=== PATIENT | female | born 1950 | race Caucasian/White ===

== ENCOUNTER 2023-11-16 23:27 | Inpatient (IN) | payer MEDICARE, SELFPAY ==
[2023-11-16 17:35] VITALS: BP 118/77
[2023-11-16 19:00] VITALS: BP 133/76
--- NOTE | 2023-11-16 20:15 | ED.GENMED ---
History of Present Illness
<Yady Neville NP - Last Filed: 11/16/23 20:40>
General
Chief Complaint: DVT/Possible Blood Clot
Source: patient
Exam Limitations: none
Time Seen by Provider: 11/16/23 18:49
Nursing documentation reviewed up to this point in time: agreed with
History of Present Illness
History of Present Illness:
Patient to ED with complaint of swelling to LLE. Woke this AM with swelling. No history of trauma. No prior history of same. Brought self to ED fo reval.
Past History
<Yady Neville NP - Last Filed: 11/16/23 20:40>
Past History
ED Past Medical History: Asthma, GERD, HTN, Hypercholesterolemia, Psychiatric (depression) and Other (Diverticulitis)
ED Past Surgical History: Orthopedic (bilateral ligament repair thumb) and Other (breast biopsy)
Social History
Tobacco: Non-smoker
Alcohol: None
Drug: None
Review of Systems
<Yady Neville NP - Last Filed: 11/16/23 20:40>
Review of Systems
Allergies reviewed?: Yes
All Other Systems: ROS reviewed and negative except as documented in HPI and ROS
Constitutional: Reports no symptoms
EENT: Reports no symptoms
Respiratory: Reports no symptoms
Cardiac: Reports no symptoms
ABD/GI: Reports no symptoms
: Reports no symptoms
Musculoskeletal: Reports joint swelling (sswelling to LLE)
Skin: Reports no symptoms
Neurological: Reports no symptoms
Psychiatric: Reports no symptoms
Phy Exam
<Yady Neville NP - Last Filed: 11/16/23 20:40>
General Physical Exam
General Presentation: well appearing and no apparent distress
General age: appears stated age
General Skin: warm and dry
General Habitus: normal
General Mental: alert
Cardiovascular Exam
Cardiovascular Exam: regular rate/rhythm
Pulmonary Exam
Pulmonary Exam: no respiratory distress and chest non tender
Musculoskeletal Exam
Musculoskeletal Exam: full ROM and neuro vasc intact
Skin Exam
Skin Exam: normal color, warm/dry and no rash
Psychiatric Exam
Psychiatric Exam: normal mood/affect
Course
<Yady Neville NP - Last Filed: 11/16/23 20:40>
Orders/Labs/Results
Orders:
Orders
11/16/23 17:38
Periph Venous Lwr Ext Left US [US Periph Venous LOWER Ext LT] Urgent
Comment:
Reason For Exam: swelling
11/16/23 20:47
Complete Blood Count/With Diff Urgent
Comprehensive Metabolic Panel Urgent
11/16/23 22:[address] Non Medication Order As Directed
Physician Order: PTT 6 hours after initial start of Heparin infusion
11/16/23 22:15
Heparin 27300 Units/250 ml 25,000 units in 250 ml IV PER PROTOCOL
Weight to be used for heparin protocol in kilograms (kg):: 98.3
Protocol:: DVT/PE
PTT Goal Range to be used:: PTT 73 to 111 seconds
Order type:: Initial
INITIAL Infusion Dose (UNITS/KG/hr) & then follow protocol:: 18 units/kg/hr
Infusion Dose in UNITS/hr & then follow protocol (UNITS/hr):: 1,800
INFUSION RATE in mL/hr & then follow protocol (mL/hr):: 18
For DVT/PE algorithm, re-bolus for low PTT?: Yes
PTT less than or equal to 64 seconds:: Re-bolus 80 units/kg (max 10,000units). Increase by 400 units/hr
(+ 4mL/hr)
PTT 64.1 to 72.9 seconds:: Re-bolus 40 units/kg (max 5,000 units). Increase by 200 units/hr
(+ 2mL/hr)
PTT 73 to 111 seconds:: Target Range. No change in rate.
PTT 111.1 to 130.9 seconds:: Decrease rate by 200 units/hr (- 2 mL/hr)
PTT 131 to 199.9 seconds:: HOLD for 1 hr. Then decrease by 300 units/hr (- 3mL/hr)
PTT greater than or equal to 200 seconds:: HOLD for 2 hrs & Notify Provider. Then decrease by 400 units/hr
(- 4mL/hr)
Lab follow-up:: Each change, PTT q6h until 2 consecutive are therapeutic. Then
PTT daily.
11/16/23 22:24
Heparin 7,900 units IV PRN PRN
11/16/23 22:25
PTT Urgent
Comment: Obtain baseline before beginning heparin infusion if not already collected
Heparin 3,900 units IV PRN PRN
11/16/23 22:47
CT Abd/pelvis W Iv Cont Urgent
Comment: CT VENOGRAM
Reason For Exam: LLE DVT--eval for proximal clot
11/16/23 22:48
Vascular Surgery Consult Urgent
Consulting Provider: Vivek Prescott III
Was physician already notified: Yes
Abnormal Lab Results
11/16/23
20:47
RBC 3.70 L 10^6/uL
(4.20-5.40)
Hct 36.9 L %
(37.0-47.0)
MCV 99.7 H fL
(81.0-99.0)
MCH 34.1 H pg
(27.0-31.0)
Abs Immat Gran (auto) 0.1 H 10^3/uL
(0-0.05)
Absolute Neuts (auto) 6.8 H 10^3/uL
(1.4-6.5)
BUN 22 H mg/dl
(7-17)
Creatinine 1.1 H mg/dL
(0.6-1.0)
Calcium 10.6 H mg/dl
(8.4-10.2)
11/16/23 20:47
11/16/23 20:47
Vital Signs
Initial and Last Documented VS:
Initial Vital Signs
Temp Pulse Resp BP Pulse Ox
37.1 C 89 18 118/77 94
11/16/23 17:35 11/16/23 17:35 11/16/23 17:35 11/16/23 17:35 11/16/23 17:35
Last Documented Vital Signs
Temp Pulse Resp BP Pulse Ox
37.1 C 81 20 138/79 99
11/16/23 17:35 11/16/23 21:55 11/16/23 21:55 11/16/23 21:55 11/16/23 19:00
<Jermaine Lion MD - Last Filed: 11/16/23 22:49>
Orders/Labs/Results
Orders:
Orders
11/16/23 17:38
Periph Venous Lwr Ext Left US [US Periph Venous LOWER Ext LT] Urgent
Comment:
Reason For Exam: swelling
11/16/23 20:47
Complete Blood Count/With Diff Urgent
Comprehensive Metabolic Panel Urgent
11/16/23 22:[address] Non Medication Order As Directed
Physician Order: PTT 6 hours after initial start of Heparin infusion
11/16/23 22:15
Heparin 82810 Units/250 ml 25,000 units in 250 ml IV PER PROTOCOL
Weight to be used for heparin protocol in kilograms (kg):: 98.3
Protocol:: DVT/PE
PTT Goal Range to be used:: PTT 73 to 111 seconds
Order type:: Initial
INITIAL Infusion Dose (UNITS/KG/hr) & then follow protocol:: 18 units/kg/hr
Infusion Dose in UNITS/hr & then follow protocol (UNITS/hr):: 1,800
INFUSION RATE in mL/hr & then follow protocol (mL/hr):: 18
For DVT/PE algorithm, re-bolus for low PTT?: Yes
PTT less than or equal to 64 seconds:: Re-bolus 80 units/kg (max 10,000units). Increase by 400 units/hr
(+ 4mL/hr)
PTT 64.1 to 72.9 seconds:: Re-bolus 40 units/kg (max 5,000 units). Increase by 200 units/hr
(+ 2mL/hr)
PTT 73 to 111 seconds:: Target Range. No change in rate.
PTT 111.1 to 130.9 seconds:: Decrease rate by 200 units/hr (- 2 mL/hr)
PTT 131 to 199.9 seconds:: HOLD for 1 hr. Then decrease by 300 units/hr (- 3mL/hr)
PTT greater than or equal to 200 seconds:: HOLD for 2 hrs & Notify Provider. Then decrease by 400 units/hr
(- 4mL/hr)
Lab follow-up:: Each change, PTT q6h until 2 consecutive are therapeutic. Then
PTT daily.
11/16/23 22:24
Heparin 7,900 units IV PRN PRN
11/16/23 22:25
PTT Urgent
Comment: Obtain baseline before beginning heparin infusion if not already collected
Heparin 3,900 units IV PRN PRN
11/16/23 22:47
CT Abd/pelvis W Iv Cont Urgent
Comment: CT VENOGRAM
Reason For Exam: LLE DVT--eval for proximal clot
11/16/23 22:48
Vascular Surgery Consult Urgent
Consulting Provider: Vivek Prescott III
Was physician already notified: Yes
Abnormal Lab Results
11/16/23
20:47
RBC 3.70 L 10^6/uL
(4.20-5.40)
Hct 36.9 L %
(37.0-47.0)
MCV 99.7 H fL
(81.0-99.0)
MCH 34.1 H pg
(27.0-31.0)
Abs Immat Gran (auto) 0.1 H 10^3/uL
(0-0.05)
Absolute Neuts (auto) 6.8 H 10^3/uL
(1.4-6.5)
BUN 22 H mg/dl
(7-17)
Creatinine 1.1 H mg/dL
(0.6-1.0)
Calcium 10.6 H mg/dl
(8.4-10.2)
11/16/23 20:47
11/16/23 20:47
Vital Signs
Initial and Last Documented VS:
Initial Vital Signs
Temp Pulse Resp BP Pulse Ox
37.1 C 89 18 118/77 94
11/16/23 17:35 11/16/23 17:35 11/16/23 17:35 11/16/23 17:35 11/16/23 17:35
Last Documented Vital Signs
Temp Pulse Resp BP Pulse Ox
37.1 C 81 20 138/79 99
11/16/23 17:35 11/16/23 21:55 11/16/23 21:55 11/16/23 21:55 11/16/23 19:00
ED Attending Note
<Yady Neville NP - Last Filed: 11/16/23 20:40>
-
Portions of this chart may have been created with voice recognition software.� Occasional wrong word or��sound alike� substitutions may have occurred due to the inherent limitations of voice recognition software.
<Jermaine Lion MD - Last Filed: 11/16/23 22:49>
ED Attending Note
Patient seen and examined by attending physician: Yes
ED Attending Note:
I have seen and evaluated the patient with a [id number] encounter. I have spoken to the advance practicer provider and involved in the medical history, the physical exam, medical decision making.
Evaluation and management service: agree unless noted differently below.
Results interpretation: agree unless noted differently below.
Focused HPI: 73-year-old female with past medical history as noted presents to the emergency room for evaluation of left leg pain and swelling. Patient reports that she started to notice some slight swelling over the past month but feels it has
been worsening over the past week. She says that today she went for a walk and was having pain in the leg and noted that she was having some paresthesias in the foot and that the swelling seemed to be a bit worse and the coloration was off.
Discussed with PCP who referred to the ER. Denies any chest pain or shortness of breath. She denies any history of DVT/PE. Denies any recent flights or travel.
Physical exam: Awake alert oriented x 3. Vital signs noted all within normal limits. Left lower extremity reddish-purple discoloration, +2 edema compared to right lower extremity. Mild calf tenderness. She has palpable DP and PT pulses left
lower extremity.
Medical Decision Makin-year-old female presents with left lower leg pain and swelling, paresthesias. Vitals and exam as above. Labs were sent off including a CBC and a CMP�CMP shows mild TOM with a creatinine of 1.1. Left lower extremity
ultrasound was positive for extensive DVT. Given extent of clot we will plan to start on IV heparin. Case discussed with vascular regarding possibility of thrombolysis�awaiting review and recommendations.
Vascular surgery agrees with IV heparin and admission, recommended ordering CT venogram, n.p.o. at midnight for lysis in the morning. Case discussed with hospitalist for admission.
Discharge Plan
Departure
Prescriptions:
No Action
metoprolol succinate 50 mg Tablet Extended Release 24 Hr
50 mg PO HS
simvastatin 40 mg Tablet
40 mg PO HS
calcium carbonate [Calcium 500] 500 mg calcium (1,250 mg) Tablet
500 mg PO DAILY
omeprazole 20 mg Capsule,Delayed Release(Dr/Ec)
20 mg PO DAILYPRN PRN (Reason: gerd)
sertraline 50 mg Tablet
150 mg PO HS
B Complex Plus Vitamin C 04-51-44-5-300 mg Capsule
1 cap PO DAILY
cholecalciferol (vitamin D3) [Vitamin D3] 25 mcg (1,000 unit) Tablet
25 mcg PO DAILY
lisinopril 20 mg tablet
20 mg PO HS
albuterol sulfate 90 mcg/actuation HFA aerosol inhaler
2 puff INHALATION R Q4HPRN PRN (Reason: sob/wheezing)
budesonide-formoterol [Symbicort] 80-4.5 mcg/actuation HFA aerosol inhaler
2 puff INHALATION R BID
Referrals:
Ambika Smith PA-C [Family Provider] -
Interventions
Interventions:
*Risk Screen - Suicide Last Done: 11/16/23 18:53
*General Assessment Last Done: 11/16/23 18:53
*Neglect/Abuse Screening Last Done: 11/16/23 18:53
*ED COVID-19 Vaccine History Last Done: 11/16/23 18:53
ED- Cardiac Assessment Last Done: 11/16/23 18:53
ED- Pulmonary Assessment Last Done: 11/16/23 18:53
ED-Peripheral Vascular Assessment Last Done: 11/16/23 18:53
ED-Skin Assessment Last Done: 11/16/23 18:53
Discharge Date and Time
Print Language: YORUBA
[2023-11-16 20:55] LABS: % Basophils 0.4 % (0-2); % Eosinophils 0.8 % (0-6); % Immature Granulocytes 0.5 % (0-0.5); % Lymphocytes 20.9 % (20.5-51.1); % Monocytes 5.4 % (1.7-9.3); Absolute Eosinophils 0.1 10^3/uL (0-0.7); Absolute Immature Granulocytes 0.1 10^3/uL (0-0.05); Absolute Monocytes 0.5 10^3/uL (0.1-0.6); Absolute Neutrophils 6.8 10^3/uL (1.4-6.5); Hematocrit 36.9 % (37.0-47.0); Hemoglobin 12.6 g/dL (12.0-16.0); Mean Corp Hgb Conc. 34.1 g/dL (33.0-37.0); Mean Corpuscular Hgb 34.1 pg (27.0-31.0); Mean Corpuscular Volume 99.7 fL (81.0-99.0); Mean Platelet Volume 9.5 fL (7.4-10.4); Nucleated Red Blood Cells % 0 %; Platelet Count 134 10^3/uL (130-400); Red Cell Dist. Width 12.8 % (11.5-14.5); White Blood Cell Count 9.4 10^3/uL (4.8-10.8)
[2023-11-16 21:21] LABS: ALT (SGPT) 19 U/L (0-35); AST (SGOT) 26 U/L (14-36); Albumin 4.1 g/dl (3.5-5.0); Alkaline Phosphatase 105 U/L (38-126); Blood Urea Nitrogen 22 mg/dl (7-17); Calcium 10.6 mg/dl (8.4-10.2); Carbon Dioxide 22 mmol/L (22-30); Chloride 106 mmol/L (98-107); Glucose 83 mg/dl (70-99); Potassium 4.2 mmol/L (3.5-5.1); Sodium 135 mmol/L (135-145); Total Bilirubin 0.7 mg/dl (0.2-1.3); Total Protein 6.6 g/dl (6.3-8.2); eGFR 53.39
[2023-11-16 21:55] VITALS: BP 138/79
[2023-11-16 22:06] VITALS: BMI 39.7
--- NOTE | 2023-11-16 22:21 | EDRN ---
Pharmacy contacted to verify Heparin gtt
[2023-11-16 22:43] LABS: APTT 24.4 Sec (23.4-35.0)
[2023-11-16] MEDS: HEPARIN 25000 UNITS/250 ML IV (23:02)
--- NOTE | 2023-11-16 23:18 | HPS.HSE ---
Family Physician
-
Family Physician: Ambika Smith
Chief Complaint
-
Pain and Swelling of LLE
History of Present Illness
Pt is a 73 yo F with PMH HTN, asthma, DAMASO on CPAP, and depression p/w LLE pain and swelling x 1 day. Pt describes aching pain while walking her dog yesterday. She states pain was noticeably worse worse today while feeding her animals with associated
swelling and pink discoloration. She admits to neuropathy and numbness in lower extremities (L>R). She contacted her PCP for evaluation who recommended going to the ED for prompt peripheral vascular US to r/o DVT. Pt states she has been less active
recently after losing her job, but still walks her dog a few times a day. She denies chest pain, palpitations, SOB, or dizziness. She denies smoking, hormone replacement, recent travel or recent surgery. She denies hx of malignancy, DVT/PE, and
family hx of clotting disorders.
Medical History
Past Medical History
Past Medical History: Reports Other
Additional Past Medical History:
Essential Hypertension
Hyperlipidemia
Mild Persistent Asthma
Anxiety/Depression
Obstructive Sleep Apnea
Overactive Bladder
GERD
Past Surgical History: Reports Other
Additional Past Surgical History:
Back Surgery
Bilateral Knee Arthroscopy
ACL Repair
Bilateral Thumb Surgery
Social History
Tobacco: Non-smoker
Alcohol: Occasional
Family History
Family History: Not pertinent (Denies family history of blood clots)
Allergies / Home Medications
Allergies reflects when Allergies were last updated in [facility].
Home Medications with original date entered in [facility]
Allergy/Medication List:
Allergies
Allergy/AdvReac Type Severity Reaction Status Date / Time
No Known Allergies Allergy Verified 11/16/23 17:38
Home Medications
calcium carbonate 500 mg PO DAILY 12/03/22
cholecalciferol (vitamin D3) 25 mcg (1,000 unit) tablet (Vitamin D3) 25 mcg PO DAILY 12/03/22
metoprolol succinate 50 mg tablet,extended release 24 hr 50 mg PO HS 12/03/22
omeprazole 20 mg capsule,delayed release 20 mg PO DAILYPRN PRN gerd 12/03/22
sertraline 50 mg tablet 150 mg PO HS 12/03/22
simvastatin 40 mg tablet 40 mg PO HS 12/03/22
vitamin B comp and C no.3 15 mg-10 mg-50 mg-5 mg-300 mg capsule (B Complex Plus Vitamin C) 1 cap PO DAILY 12/03/22
albuterol sulfate 90 mcg/actuation aerosol inhaler 2 puff inhalation R Q4HPRN PRN sob/wheezing 11/16/23
budesonide-formoterol HFA 80 mcg-4.5 mcg/actuation aerosol inhaler (Symbicort) 2 puff inhalation R BID 11/16/23
lisinopril 20 mg tablet 20 mg PO HS 11/16/23
Review of Systems
-
A 12 point ROS was completed and negative except as noted: Yes
Constitutional: Denies Fever or Chills
Respiratory: Denies Cough or Trouble Breathing
Cardiac: Denies Chest Pain or Palpitations
Physical Exam
Vital Signs
Vital Signs
Temp Pulse Resp BP Pulse Ox
98.8 F 81 20 138/79 99
11/16/23 17:35 11/16/23 21:55 11/16/23 21:55 11/16/23 21:55 11/16/23 19:00
Physical Exam
General: Comfortable and Conversant
HEENT: Anicteric and Moist mucous membranes
Respiratory: Clear and Non Labored Respirations
Cardiac: S1/S2 and Regular Rhythm
GI: Soft and Non Tender
Rectal: Deferred by Provider
Musculoskeletal: No Clubbing, No Cyanosis and Edema, Left Lower Extremity
Skin: Warm and Dry
Neuro: Awake, Alert, Oriented and Nonfocal/grossly intact
Psych: Calm
Laboratory Results
-
11/16/23 20:47
11/16/23 20:47
Laboratory Results
APTT 24.4 Sec (23.4-35.0) 11/16/23 22:25
Total Bilirubin 0.7 mg/dl (0.2-1.3) 11/16/23 20:47
AST 26 U/L (14-36) 11/16/23 20:47
ALT 19 U/L (0-35) 11/16/23 20:47
Alkaline Phosphatase 105 U/L (38-126) 11/16/23 20:47
Data Reviewed
-
Lab Data: Labs Reviewed by me
Impression/Plan
-
Extensive Left Lower Extremity DVT
-ED reviewed with Vascular Surgery
-Plan for Venogram today
-NPO after midnight for possible thrombolysis in AM
-Continue heparin drip
Essential Hypertension
-Continue lisinopril and metoprolol
Hyperlipidemia
-Continue simvastatin
Mild Persistent Asthma, no acute exacerbation
-Continue Symbicort
Anxiety/Depression
-Continue sertraline
Obstructive Sleep Apnea
-Continue CPAP
Code Status: Full Code
[2023-11-16 23:38] VITALS: BP 151/76
--- NOTE | 2023-11-16 23:39 | W.PN.UPDATE ---
Update Note
Progress Note Update
This is an addendum to the H&P written by Lorelei Morris on 11/16/2003. Patient seen examined independently with PA.
73-year-old female past medical history of asthma, obstructive sleep apnea, hypertension, GERD, depression, hyperlipidemia presenting with increased left lower extremity leg edema over the past 6 weeks. Venous ultrasound shows extensive left lower
extremity DVT. Unprovoked DVT. Heparin drip, CT venogram, vascular surgery consulted, n.p.o. pastmidnight for potential lysis.
[2023-11-17] VITALS (23 sets, daily range): BP systolic 100–164; BP diastolic 37–93; PULSE 77; BMI 38.2
--- NOTE | 2023-11-17 04:26 | PTCARENOTE ---
Received pt from ED via stretcher into room 6766. Pt ambulated w/ standby assist and c/o some lightheadedness. BP 157/75. Tele monitor applied--NSR. IV heparin gtt currently infusing at 18ml/hr, next ptt due at 05:00. Left leg w/ +3 edema, skin warm
to touch and slightly red. Pt aware of POC, call ryan within reach.
[2023-11-17 05:43] LABS: Hematocrit 35.4 % (37.0-47.0); Hemoglobin 12.1 g/dL (12.0-16.0); Mean Corp Hgb Conc. 34.2 g/dL (33.0-37.0); Mean Corpuscular Hgb 33.7 pg (27.0-31.0); Mean Corpuscular Volume 98.6 fL (81.0-99.0); Mean Platelet Volume 9.7 fL (7.4-10.4); Platelet Count 143 10^3/uL (130-400); Red Blood Cell Count 3.59 10^6/uL (4.20-5.40); Red Cell Dist. Width 12.7 % (11.5-14.5); White Blood Cell Count 9.9 10^3/uL (4.8-10.8)
[2023-11-17 05:56] LABS: APTT 129.4 Sec (23.4-35.0)
[2023-11-17] MEDS: SYMBICORT 80/4.5 MCG INHALER 2 PUFF INH (07:40)
[2023-11-17 07:54] LABS: Blood Urea Nitrogen 22 mg/dl (7-17); Calcium 10.6 mg/dl (8.4-10.2); Carbon Dioxide 21 mmol/L (22-30); Chloride 106 mmol/L (98-107); Estimated Creatinine Clearance 54 ml/min; Glucose 82 mg/dl (70-99); Potassium 4.2 mmol/L (3.5-5.1); Sodium 137 mmol/L (135-145); eGFR 59.86
--- NOTE | 2023-11-17 08:47 | W.PN.HOSP.TC ---
Today's Communication/Plan
-
cont heparin
VascSx
Chest CT
Assessment / Plan
Assessment / Plan
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
May-Thurner syndrome, scheduled for OR by vasc Sx on 11/17/23
A/P:
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
Heparin drip and then DOAC
VAscSx for further mgmt
#Mild hypercalcemia
patient on calcium and vit D supplements - advised to stop and repeat calcium level in 1mo with PCP, advised for age appropriate CA screening. CT abd/pelvis without overt signs of CA
check PTH, vit D 0.[address]
#COPD not in exacerbation
#Anxiety d/o
#Essential HTN
#HLD
cont home meds
#Delayed renal contrast excretion
Urine/Albumin ratio, Urine protein random
outpatient follow up by PCP
Cr WNL
DVT ppx on hep drip
FUll code
I have spent at least 56min reviewing chart, test results, communication with consultants and direct patient care
Anticipated Discharge: > 48 hours
Subjective/Interval History
-
Date of Service: November 17, 2023
Objective Data
-
Labs:
Laboratory Results
11/16/23 11/16/23 11/17/23
20:47 22:25 05:15
WBC 9.4 9.9
Hgb 12.6 12.1
Hct 36.9 L 35.4 L
Plt Count 134 143
APTT 24.4 129.4 H
Sodium 135 137
Potassium 4.2 4.2
Chloride 106 106
Carbon Dioxide 22 21 L
BUN 22 H 22 H
Creatinine 1.1 H 1.0
Glucose 83 82
Calcium 10.6 H 10.6 H
Total Bilirubin 0.7
AST 26
ALT 19
Alkaline Phosphatase 105
11/17/23
12:15
WBC
Hgb
Hct
Plt Count
APTT Pending
Sodium
Potassium
Chloride
Carbon Dioxide
BUN
Creatinine
Glucose
Calcium Pending
Total Bilirubin
AST
ALT
Alkaline Phosphatase
Vital Signs:
Vital Signs
Temp Pulse Resp BP Pulse Ox
98.1 F 85 18 129/64 93
11/17/23 08:09 11/17/23 07:43 11/17/23 08:09 11/17/23 05:09 11/17/23 08:09
Review of Systems
-
History Source: Patient
All other systems: Reviewed and negative
Physical Exam
-
General: No Apparent Distress
HEENT: Normocephalic
Respiratory: Clear to Auscultation
Cardiac: Regular Rhythm
GI: Soft, Nontender and Nondistended
Musculoskeletal: Edema, Left Lower Extrem
Skin: Warm
Neuro: Awake, Alert and Oriented
Psych: Calm
--- NOTE | 2023-11-17 08:50 | PTCARENOTE ---
Received pt from shift engineer RN; NSR on monitor and VSS; Heparin drip infusing see flow sheet for details; Lungs clear positive bowel sounds; pt voiding yellow urine; + 3 left lower leg edema, skin warm and tight; Dr Prescott at bedside; palpable
pulses; see nursing documentation for further details.
[2023-11-17] MEDS: NSS 1000 IV ×2 (10:02→23:46)
--- NOTE | 2023-11-17 11:06 | CM ---
Chart reviewed. Patient is independent of ADLS, lives alone in a duplex, 1st level, 3 JUMA[address], 1st floor, 0 DME. Plan is for the patient to return home. CM to follow
--- NOTE | 2023-11-17 11:18 | CON.VAS ---
Consultation
Consultation Request
Date/Time Consultation Requested: November 17, 2023 / 22:48 PM
Date/Time Consultation Performed: November 17, 2023 / 7:30 AM
Requesting Provider: Dr. Barcenas
Performing Provider: Fernandez Silva MD, PGY-1 TY-Resident / Dr. Prescott
Reason for Consultation: LLE - DVT
Medical History
-
Chief Complaint: LLE - Swelling
History of Present Illness:
73 yo Female with no relevant PMHx/PSHx who presented to the ED yesterday afternoon with complains of unilateral LLE swelling and heaviness associated with a red skin discoloration that began while walking her dog.
Pt stated her LLE swelling and heaviness progressively got worst during the afternoon, which prompted her to contact her PCP, which instructed her to present to the ED at the time.
Pt denies experiencing this type of symptoms before and notice no alleviating or aggravating factors at that time.
ROS was negative for any neurologic changes/deficits, chest pain, SOB or palpitations at that time.
Past Medical History
Past Medical History: Asthma, GERD, HTN, Hypercholesterolemia and Psychiatric
Past Surgical History: Orthopedic
Social History
Tobacco: Non-Smoker
Alcohol: Occasional
Drug: None
Personal: Single
Living: Alone
Employment: Not Employed
Family History
Family History: Reviewed & Not Pertinent (No previous FMHx of Blood Clots or Inhereted Hypercoagulability )
Allergies / Home Medications
Allergy/AdvReac Type Severity Reaction Status Date / Time
No Known Allergies Allergy Verified 11/16/23 17:38
�Medication �Instructions �Recorded �Confirmed �Type
calcium carbonate 500 mg PO DAILY 12/03/22 11/16/23 History
cholecalciferol (vitamin D3) 25 25 mcg PO DAILY 12/03/22 11/16/23 History
mcg (1,000 unit) tablet (Vitamin
D3)
metoprolol succinate 50 mg 50 mg PO HS 12/03/22 11/16/23 History
tablet,extended release 24 hr
omeprazole 20 mg capsule,delayed 20 mg PO DAILYPRN PRN gerd 12/03/22 11/16/23 History
release
sertraline 50 mg tablet 150 mg PO HS 12/03/22 11/16/23 History
simvastatin 40 mg tablet 40 mg PO HS 12/03/22 11/16/23 History
vitamin B comp and C no.3 15 mg-10 1 cap PO DAILY 12/03/22 11/16/23 History
mg-50 mg-5 mg-300 mg capsule (B
Complex Plus Vitamin C)
albuterol sulfate 90 mcg/actuation 2 puff inhalation R Q4HPRN PRN 11/16/23 11/16/23 History
aerosol inhaler sob/wheezing
budesonide-formoterol HFA 80 2 puff inhalation R BID 11/16/23 11/16/23 History
mcg-4.5 mcg/actuation aerosol
inhaler (Symbicort)
lisinopril 20 mg tablet 20 mg PO HS 11/16/23 11/16/23 History
azelastine 137 mcg (0.1 %) nasal 1 spray intranasal BID 11/17/23 11/17/23 History
spray
Review of Systems
-
History Source: Patient
All other systems: Negative unless noted
Constitutional: Reports No Symptoms
EENT: Reports No Symptoms
Respiratory: Reports No Symptoms
Cardiac: Reports No Symptoms
Vascular: Reports Leg Pain / Claudication (LLE Pain / Swelling ), Numbness and Tingling
Abdomen/GI: Reports No Symptoms
: Reports No Symptoms
Musculoskeletal: Reports Muscle Pain, Muscle Stiffness, Edema and Other (LLE Edema / Swelling )
Skin: Reports Rash and Other (LLE Reddness / Petechia )
Neurological: Reports Numbness and Other (LLE Heaviness)
Physical Exam
Vital Signs
Temp Pulse Resp BP Pulse Ox
36.7 C 84 18 124/63 97
11/17/23 08:09 11/17/23 08:03 11/17/23 08:09 11/17/23 08:03 11/17/23 08:49
Lab Results
11/17/23 05:15
11/17/23 05:15
Physical Exam
General: Well Developed, Well Nourished, No Apparent Distress and Comfortable
HEENT: Anicteric
Respiratory: Non Labored Respirations
Cardiac: Peripheral Edema and Calf Tenderness
Breast: N/A
GI: Soft, Non Tender and Non Distended
Musculoskeletal: No Clubbing, No Cyanosis and Edema (Unilateral Left-LE)
Skin: Rash and Other (LLE Redness / Swelling / Petechia )
Neuro: Awake, Alert, Oriented, AO x 3, No Motor Deficits and Nonfocal/Grossly Intact
Hematologic/Lymphatic: No Lymphadenopathy
Psych: Calm
Pulses: Bilateral Femoral: +2, Bilateral Popliteal: +2, Bilateral Dorsalis Pedis: +2 and Bilateral Posterior Tibial: +2
Assessment / Plan
-
ASSESSMENT:
73 yo Female with no relevant PMHx/PSHx who presented to the ED yesterday afternoon with Unilateral LLE Swelling/Tenderness and associated skin changes and was found to have a Spontaneous/Unprovoked LLE DVT.
PLAN:
NPO
Multi-Modal Pain control analgesia
Continue Heparin Drip
Continue Supportive IV Fluids and Supportive Measures
Pt to be schedule to the OR for possible Thrombectomy Vs Thrombolysis of LLE DVT today
Medical/Conservative Vs. Surgical/Interventional Treatment-Therapy Approach along with Risks and Benefits of each one, were discussed, explained and evaluated with the pt this morning.
Data Reviewed
-
CT Scan: Image Personally Visualized and interpreted, Discussed with Physician and Discussed with Patient
Ultrasound: Image Personally Visualized and interpreted, Discussed with Physician and Discussed with Patient
Labs: Labs Reviewed by me, Discussed with Physician and Discussed with Patient
Critical Care Time (in minutes): ~25 Min
Total Time Spent with Patient (in minutes): ~25 Min
[2023-11-17 13:01] LABS: APTT 116.2 Sec (23.4-35.0)
[2023-11-17] MEDS: HEPARIN 25000 UNITS/250 ML IV ×2 (13:17→20:12)
[2023-11-17 13:39] LABS: Vitamin D, 25-OH*** 18.6 ng/mL (30-80)
[2023-11-17 13:48] LABS: Intact PTH 108.8 pg/ml (13.6-85.8)
--- NOTE | 2023-11-17 15:00 | PTCARENOTE ---
Pt sent to Vascular OR with RN; report given.
--- NOTE | 2023-11-17 15:20 | W.SUR.PREOP ---
Pre-Operative Surgical Note
-
I have examined this patient prior to the performance of the scheduled procedure.
The patient's condition is unchanged from the time of the current History and
Physical and the patient is able to undergo the scheduled procedure.
[2023-11-17 16:45] LABS: ACT-LR - POC 142 Seconds (116-155)
[2023-11-17 16:55] LABS: ACT-LR - POC 226 Seconds (116-155)
[2023-11-17] MEDS: ZOFRAN 4 MG IV (18:40)
[2023-11-17] MEDS: SUBLIMAZE 50 MCG IV (19:04)
[2023-11-17 19:13] LABS: APTT > 200 Sec (23.4-35.0)
[2023-11-17] MEDS: SYMBICORT 80/4.5 MCG INHALER INH (19:32)
--- NOTE | 2023-11-17 21:03 | PTCARENOTE ---
Pt is pleasant and AOX3. Tele- SR. L leg elevated and w/ MARY wrap bandage c/d/i. Restarted Heparin gtt per order at 1999. Heparin gtt infusing at 1400 units/hr per order. Pt tolerating regular diet. No complaints nausea. Pt verbalizes understanding
of bedrest restriction for tonight. Currently in bed; call shelby w/in reach.
[2023-11-17] MEDS: ZESTRIL 20 MG PO (21:39)
[2023-11-17] MEDS: LIPITOR 20 MG PO (21:39)
[2023-11-17] MEDS: ZOLOFT 150 MG PO (21:39)
[2023-11-17] MEDS: TOPROL XL 50 MG PO (21:40)
--- NOTE | 2023-11-17 21:42 | OR.RPT ---
Operative Report
Operative Report
Date of Operation: 11/17/2023
Pre Op Diagnosis:
1.) Extensive left lower extremity DVT involving the external iliac vein, common femoral vein, femoral vein and popliteal vein
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
Post Op Diagnosis:
1.) Extensive left lower extremity DVT involving the external iliac vein, common femoral vein, femoral vein and popliteal vein
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
Procedure:
1.) Percutaneous transluminal mechanical thrombectomy using the Inari ClotTriever device
2.) transcatheter placement of intravascular stent, including angioplasty to the left common iliac vein (16 mm x 100 mm Zilver Vena)
3.) transcatheter placement of intravascular stent, including angioplasty to the left external iliac vein (16 mm x 100 mm Zilver Vena)
4.) transluminal balloon angioplasty of the left femoral vein (8 mm x 100 mm)
5.) transluminal balloon angioplasty of the left popliteal vein (8 mm x 100 mm)
6.) intravascular ultrasound for diagnostic evaluation left femoral vein, common femoral vein, external iliac vein, common iliac vein and inferior vena cava
7.) left lower extremity venogram
8.) inferior venacavogram
9.) selective wire and catheter placement, venous system, from left popliteal vein access site (femoral vein, common femoral vein, external iliac vein, common iliac vein, inferior vena cava, superior vena cava, innominate, right subclavian vein)
10.) ultrasound-guided percutaneous access to the left popliteal vein
Surgeon: Vivek Prescott III, MD
Personal Injury Attorney: Cr San MD PhD PGY-6
Anesthesia: General
Complications: None
Estimated Blood Loss: 100 cc
History and Indications for Procedure: 73-year-old female with history of hypertension, obstructive sleep apnea presents with acute onset diffuse left lower extremity swelling and discoloration. She was found to have extensive left lower extremity
DVT on venous duplex involving the common femoral vein, femoral vein and popliteal vein. Cross-sectional imaging demonstrated extension into the left external iliac vein along with venous compression consistent with May-Thurner. She was brought to
the operating room for endovascular intervention.
Procedure in Detail: Lauren Martinez was correctly identified in the operating room. After adequate induction of anesthesia she was carefully positioned prone on the operating table in the vascular surgery hybrid room. All pressure points were closely
inspected and padded appropriately with the assistance of the nursing and anesthesia staff. Her left posterior thigh, popliteal fossa and proximal calf were prepped and draped in the usual sterile fashion. A timeout procedure was performed with
the nursing and anesthesia staff confirming the patient's identity as well as the nature and laterality of the procedure.
Under ultrasound guidance I identified the left popliteal vein. The left popliteal vein was accessed under ultrasound guidance with a micropuncture needle and then I upsized to a 5 [place]orran sheath over a FlexyMind wire. A left lower extremity venogram
was performed demonstrating significant clot burden in the femoral vein with occlusion and significant collateralization identified. The patient was systemically heparinized. Using a long angled tip catheter and a Glidewire I carefully navigated
through the femoral vein, common femoral vein, iliac venous system and into the inferior vena cava. Wire and catheter navigation through the femoral vein was somewhat challenging and suggested there was a more chronic nature to the DVT. An inferior
venacavogram was then performed demonstrating a widely patent vena cava and no evidence of filling defects or stenosis. I then advanced the Glidewire and catheter through the inferior vena cava and into the superior vena cava. The catheter and
wire were then advanced through the innominate vein and into the right subclavian vein. The wire was exchanged out for a 7 cm floppy tip Amplatz wire.
Over the Amplatz wire the 13 Fr ClotTriever sheath was placed. The basket at the end of the sheath was deployed but appeared to be partially constrained due to occlusive thrombus in the femoral vein. Therefore I used an 8 mm by 40 mm angioplasty
balloon to profile the basket open at the distal end of the sheath. Following this the Inari ClotTriever catheter was advanced over the Amplatz wire and the radiopaque marker was positioned in the desired location in the pelvis. We then performed
mechanical thrombectomy of the left common iliac vein, external iliac vein, common femoral vein, femoral vein and popliteal vein. A total of 7 passes were made using the ClotTriever catheter in different orientations. The final 2 passes of the
device returned only a small amount of additional thrombus. On each pass, a mix of acute and chronic thrombus was retrieved. Subsequent venogram demonstrated improvement in the appearance of the femoral vein however there were still areas of what
appeared to be residual chronic thrombus and stenosis diffusely.
Following this I then advanced the intravascular ultrasound catheter over the Amplatz wire. I performed intravascular ultrasound on the femoral vein, common femoral vein, external iliac vein, common iliac vein and inferior vena cava. Consistent
with a venogram areas of residual chronic thrombus and stenosis were identified throughout the femoral vein. The common femoral vein was patent. External iliac vein was patent. I identified a significant area of compression in the left iliac
venous system near the junction of the external iliac vein and common iliac vein corresponding to the area of suspected abnormality on cross-sectional imaging. Using a combination of intravascular ultrasound and fluoroscopic guidance I marked the
confluence of the common iliac veins and origin of the inferior vena cava, left common iliac vein beyond the area of stenosis, the location of the stenosis and the location of the external iliac vein proximal to the area of stenosis. Intravascular
ultrasound was used to measure diameters of the iliac veins proximal and distal to the area of stenosis. At the area of iliac vein stenosis I used an 8 mm x 40 mm angioplasty balloon to pre-dilate. Based on the IVUS diameters that were measured I
proceeded with placement of a 16 mm x 100 mm Zilver Vena stent. The stent was positioned and deployed in the desired location based on the previous IVUS and corresponding fluoroscopic markings. The stent extended from the left common iliac vein
distally to the external iliac vein proximally. The stent was deployed successfully. The stent was then postdilated along its entire length using a 16 mm x 40 mm angioplasty balloon. The stent appeared to be fully profiled with no areas of
residual stenosis identified. Subsequent ilio-cavogram demonstrated an excellent technical result with brisk flow through the left iliac venous system, a widely patent stent in the desired location and no residual stenosis or filling defects. The
vena cava was patent.
I then focused my attention on the residual disease in the left femoral vein. Under roadmap guidance I then used an 8 mm x 100 mm angioplasty balloon to treat the entire length of femoral vein and popliteal vein from the proximal thigh to the
distal end of the ClotTriever sheath. A subsequent venogram demonstrated a significantly improved result. There was brisk flow through the femoral vein with significant improvement in the flow lumen and significantly less visualization of venous
collaterals compared to pretreatment. The iliac venous system was patent along with the stent. Residual nonocclusive thrombus was identified in the common femoral vein.
Satisfied with this result we then concluded the procedure. The wire was removed from the sheath. A [id number] 3-0 Prolene suture was placed around the access site in the skin and subcutaneous tissue. The sheath was removed and the suture
secured. Direct manual pressure was then held over the puncture site for 10 minutes. A sterile dressing was applied. The patient's leg was Jason wrapped from the toes to the proximal thigh.
The patient tolerated the procedure well. She was extubated with no immediate complications and was taken to the recovery room in stable condition.
Attestation: I was present and responsible for the entire procedure
Signed:
Vivek Prescott III, MD
[facility] Vascular Surgery
[phone] (dsdv)
[2023-11-17 23:13] LABS: Urine Protein 5 mg/dl (0-12)
[2023-11-17 23:18] LABS: Microalbumin, Random Urine 0.7 mg/dl (0.6-1.7)
[2023-11-17] MEDS: ROXICODONE 5 MG PO (23:46)
--- NOTE | 2023-11-17 23:52 | PTCARENOTE ---
Pt c/o 610 pain at L leg incision site. Caty RODRIGUEZ and Norma [employer] INSTRUCTIONAL DESIGNER aware and orders placed. PO oxycodone 5mg administered per order. See MAY.
[2023-11-18] VITALS (12 sets, daily range): BP systolic 109–149; BP diastolic 54–76; PULSE 74–86; O2SAT 94
[2023-11-18 03:06] LABS: % Basophils 0.2 % (0-2); % Immature Granulocytes 0.7 % (0-0.5); % Lymphocytes 7.4 % (20.5-51.1); % Monocytes 3.1 % (1.7-9.3); % Neutrophils 88.6 % (42.2-75.2); Absolute Immature Granulocytes 0.1 10^3/uL (0-0.05); Absolute Lymphocytes 0.8 10^3/uL (1.2-3.4); Absolute Monocytes 0.3 10^3/uL (0.1-0.6); Absolute Neutrophils 9.5 10^3/uL (1.4-6.5); Hematocrit 33.2 % (37.0-47.0); Hemoglobin 11.4 g/dL (12.0-16.0); Mean Corp Hgb Conc. 34.3 g/dL (33.0-37.0); Mean Corpuscular Hgb 33.5 pg (27.0-31.0); Mean Corpuscular Volume 97.6 fL (81.0-99.0); Mean Platelet Volume 9.6 fL (7.4-10.4); Nucleated Red Blood Cells % 0 %; Platelet Count 147 10^3/uL (130-400); Red Cell Dist. Width 12.9 % (11.5-14.5); White Blood Cell Count 10.7 10^3/uL (4.8-10.8)
[2023-11-18 03:47] LABS: APTT > 200 Sec (23.4-35.0)
--- NOTE | 2023-11-18 03:56 | PTCARENOTE ---
PTT greater than 200. [employer] OPERATIONS SPECIALIST made aware and protocol followed.
[2023-11-18 04:43] LABS: ALT (SGPT) 19 U/L (0-35); AST (SGOT) 34 U/L (14-36); Albumin 3.7 g/dl (3.5-5.0); Alkaline Phosphatase 102 U/L (38-126); Blood Urea Nitrogen 18 mg/dl (7-17); Calcium 9.7 mg/dl (8.4-10.2); Carbon Dioxide 17 mmol/L (22-30); Chloride 107 mmol/L (98-107); Estimated Creatinine Clearance 59 ml/min; Glucose 126 mg/dl (70-99); Potassium 4.7 mmol/L (3.5-5.1); Sodium 136 mmol/L (135-145); Total Bilirubin 0.8 mg/dl (0.2-1.3); Total Protein 6.3 g/dl (6.3-8.2); eGFR > 60.00
--- NOTE | 2023-11-18 08:17 | W.PN.HOSP.TC ---
Today's Communication/Plan
-
Pending further recommendations for duration of parenteral AC by vascSx
Assessment / Plan
Assessment / Plan
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
May-Thurner syndrome, s/p thrombectomy and stent to L iliac vein by vasc Sx on 11/17/23
Accidental finmding of primary hyperparathyroidism to be followed by PCP upon d/c
A/P:
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
Heparin drip and then DOAC
VAscSx follows: s/p thrombectomy and stent to common iliac vein on L and L external iliac vein on 11/17/23
#Mild hypercalcemia 2/2 Primary hyperparathyroidism
Follow with PCP for endo eval
CHest CT without signs of malignancy
#COPD not in exacerbation
#Anxiety d/o
#Essential HTN
#HLD
cont home meds
#Delayed renal contrast excretion
Urine/Albumin ratio WNL
Cr WNL
#DAMASO
cont CPAP at night
DVT ppx on hep drip
FUll code
I have spent at least 56min reviewing chart, test results, communication with consultants and direct patient care
Anticipated Discharge: 24 - 48 hours
Subjective/Interval History
-
Date of Service: November 18, 2023
Objective Data
-
Labs:
Laboratory Results
11/18/23 11/18/23
02:34 11:50
WBC 10.7
Hgb 11.4 L
Hct 33.2 L
Plt Count 147
APTT > 200 H* Pending
Sodium 136
Potassium 4.7
Chloride 107
Carbon Dioxide 17 L
BUN 18 H
Creatinine 0.9
Glucose 126 H
Calcium 9.7
Total Bilirubin 0.8
AST 34
ALT 19
Alkaline Phosphatase 102
Vital Signs:
Vital Signs
Temp Pulse Resp BP Pulse Ox
97.5 F 68 20 130/76 99
11/18/23 07:11 11/18/23 07:14 11/18/23 07:11 11/18/23 07:14 11/18/23 07:14
I&O
11/17/23 11/18/23 11/19/23
06:59 06:59 06:59
Intake Total 240 / 240
Output Total 200 / 200
Balance 40 / 40
[2023-11-18] MEDS: ROXICODONE 5 MG PO ×3 (08:45→19:49)
[2023-11-18] MEDS: SYMBICORT 80/4.5 MCG INHALER 2 PUFF INH ×2 (08:47→19:35)
--- NOTE | 2023-11-18 09:07 | W.SUR.POST ---
Surgical Immediate Post Op
Note
Pre Op Diagnosis: LEFT Ileofemoral DVT
Post Op Diagnosis: Left ileofemoral DVT
Procedure Performed: Left iliac and femoral mechanical thrombectomy, veinoplasty, and ileal stent x2
Primary Surgeon: Vivek Prescott MD
Secondary Surgeons: Cr San MD, PhD
Anesthesia: Per Anesthesia
Estimated Blood Loss: 100 cc
Fluids: Per Anesthesia
Drains/Shunts: None
Specimens/Cultures: None
Doppler/Duplex/Angio (Y/N): Multiple angiograms
Complications: None
Operative Findings: Left popliteal vein acces, wire crossed ileofemoral system, cavogram, mechanical thrombectomy with multiple passes of the Inari ClotTriever catheter, balloon veinoplasty of ileofemoral system, ileal stent x2, completion venogram
with flow throughout and minimal collateral filling
--- NOTE | 2023-11-18 09:29 | W.PN.VS ---
Today's Communication / Plan
-
Patient seen and evaluated at bedside with Dr. Vivek Prescott III, below plan reviewed with attending
Assessment/Plan
-
Assessment: 73-year-old female with left lower extremity DVT POD #1 Left iliac and femoral mechanical thrombectomy, veinoplasty, and ileal stent x2
Plan:
Vascular surgical perspective can transition from heparin infusion to oral anticoagulation of hospitalist choice
Continue aspirin 81 mg p.o. daily given recent stent placement
Physical therapy
Patient should continue with mild compression via Jason wrap or compression socks length of thigh high (prescription for compression socks in patient's chart)
Follow-up placed in discharge instructions, we will sign off please call with questions or concerns
Subjective Data
-
Date of Service: November 18, 2023
Patient seen and examined at bedside, reports continued lower back pain that is unchanged from her chronic history; otherwise with no complaints. Reports great improvement in left lower extremity swelling and discomfort following procedure.
Reports tolerating p.o. intake. Denies nausea, vomiting, fever, and chills.
Objective Data
-
Vital Signs
Temp Pulse Resp BP Pulse Ox
97.5 F 58 16 130/76 96
11/18/23 07:11 11/18/23 08:51 11/18/23 08:51 11/18/23 07:14 11/18/23 08:51
Intake and Output
11/17/23 11/18/23 11/19/23
06:59 06:59 06:59
Intake Total 240 / 240
Output Total 200 / 200
Balance 40 / 40
Intake:
Oral fluids 240 / 240
Output:
Urine, Voided 200 / 200
Lab Results
11/18/23 02:34
11/18/23 02:34
Calcium 9.7 mg/dl (8.4-10.2) 11/18/23 02:34
Total Bilirubin 0.8 mg/dl (0.2-1.3) 11/18/23 02:34
AST 34 U/L (14-36) 11/18/23 02:34
ALT 19 U/L (0-35) 11/18/23 02:34
Alkaline Phosphatase 102 U/L (38-126) 11/18/23 02:34
Total Protein 6.3 g/dl (6.3-8.2) 11/18/23 02:34
Albumin 3.7 g/dl (3.5-5.0) 11/18/23 02:34
Physical Exam
-
No apparent distress, resting in bed comfortably
No tachycardia
No dyspnea on room air
Left lower extremity soft, dressing CDI, no evidence of hematoma or edema, left DP +1 palpable
--- NOTE | 2023-11-18 09:31 | PN.CDI ---
Addendum entered and electronically signed by Haresh Nassar MD 11/18/23 09:42:
not clinically significant
Original Note:
CDI
- -
CDI:
Physician Documentation Request
Admit Date: 11/16/23 23:27
Dear Doctor Cesario,
Please review the following and provide your response in the progress notes.
Clinical Indicators:
The diagnosis of atelectasis was included in the signed 11/15 CT Abd/pelvis
- 11/15 CT Abd/pelvis 'Mild dependent atelectasis in the posterior lower lungs'
- 11/16 CT Chest 'Linear densities within the visualized posterior and inferior lower lungs, most likely linear atelectasis'
- Patient with COPD
Please indicate in your progress notes if you are in agreement that the above diagnosis is valid for this patient:
____ - Atelectasis is a valid diagnosis (Please include it in your progress notes)
____ - Atelectasis is not a valid diagnosis for this patient
____ - Other
Use of terms such as suspected, likely, concern for, or probable are acceptable for a diagnosis that is being evaluated, monitored or treated as if it exists and can be coded in the inpatient setting, when documented at the time of discharge.
Thank you,
John Dubon RN
CDI Specialist
Please use your independent medical judgment in providing your response.
--- NOTE | 2023-11-18 11:33 | CM ---
Chart reviewed. Patient is independent of ADLS, lives alone in a duplex, 1st floor, 3 JUMANA, patient has a walking stick. PT evaluation ordered. Plan is for the patient to return home. CM to follow
[2023-11-18 12:01] LABS: ACT-LR - POC > 397 Seconds (116-155)
[2023-11-18 13:08] LABS: APTT 74.8 Sec (23.4-35.0)
[2023-11-18] MEDS: ASPIR LOW (ENTERIC COATED) 81 MG PO (13:09)
[2023-11-18] MEDS: ELIQUIS 10 MG PO ×2 (13:10→19:48)
--- NOTE | 2023-11-18 18:05 | PTCARENOTE ---
Pt given oxycodone twice with good relief of posterior left leg pain. Pt seen by PT, OOB with supervision using a walker, plan to obtain one for home use. Left leg kelley wraps rewrapped, dressing on posterior left knee intact, ecchymotic. Heparin
infusion discontinued, pt taking eliquis. Telemetry shows sinus rhythm.
--- NOTE | 2023-11-18 20:53 | PTCARENOTE ---
Received pt at handoff. AOX3 and pleasant. L leg w/ kelley bandage c/d/i and L pedal w/ doppler pulse. POC reviewed w/ pt. Verbalizes understanding. Pt OOB to bathroom w/ RW and assist x1. Pt c/o pain at L leg incision site and back pain 09/06.
Oxycodone 5mg administered per order. Pt notes relief. Currently in bed; call ryan w/in reach.
[2023-11-18] MEDS: ZOLOFT 150 MG PO (23:06)
[2023-11-18] MEDS: LIPITOR 20 MG PO (23:06)
[2023-11-18] MEDS: TOPROL XL PO (23:06)
[2023-11-18] MEDS: ZESTRIL 20 MG PO (23:07)
[2023-11-19] VITALS (9 sets, daily range): BP systolic 110–153; BP diastolic 50–70; PULSE 85–87; O2SAT 95
[2023-11-19] MEDS: ROXICODONE 5 MG PO (04:40)
[2023-11-19 04:58] LABS: % Basophils 0.3 % (0-2); % Eosinophils 1.5 % (0-6); % Immature Granulocytes 0.8 % (0-0.5); % Lymphocytes 26.3 % (20.5-51.1); % Monocytes 6.2 % (1.7-9.3); % Neutrophils 64.9 % (42.2-75.2); Absolute Eosinophils 0.1 10^3/uL (0-0.7); Absolute Immature Granulocytes 0.1 10^3/uL (0-0.05); Absolute Lymphocytes 2.5 10^3/uL (1.2-3.4); Absolute Monocytes 0.6 10^3/uL (0.1-0.6); Absolute Neutrophils 6.1 10^3/uL (1.4-6.5); Hematocrit 33.3 % (37.0-47.0); Mean Corpuscular Hgb 33.3 pg (27.0-31.0); Mean Corpuscular Volume 100.9 fL (81.0-99.0); Mean Platelet Volume 9.4 fL (7.4-10.4); Nucleated Red Blood Cells % 0 %; Platelet Count 170 10^3/uL (130-400); White Blood Cell Count 9.5 10^3/uL (4.8-10.8)
[2023-11-19 05:12] LABS: ALT (SGPT) 18 U/L (0-35); AST (SGOT) 27 U/L (14-36); Albumin 3.6 g/dl (3.5-5.0); Alkaline Phosphatase 90 U/L (38-126); Blood Urea Nitrogen 21 mg/dl (7-17); Calcium 10.3 mg/dl (8.4-10.2); Carbon Dioxide 25 mmol/L (22-30); Chloride 106 mmol/L (98-107); Estimated Creatinine Clearance 54 ml/min; Glucose 110 mg/dl (70-99); Potassium 4.4 mmol/L (3.5-5.1); Sodium 139 mmol/L (135-145); Total Bilirubin 0.5 mg/dl (0.2-1.3); Total Protein 6.1 g/dl (6.3-8.2); eGFR 59.86
[2023-11-19] MEDS: SYMBICORT 80/4.5 MCG INHALER 2 PUFF INH (07:47)
[2023-11-19] MEDS: ELIQUIS 10 MG PO (09:14)
[2023-11-19] MEDS: ASPIR LOW (ENTERIC COATED) 81 MG PO (09:14)
--- NOTE | 2023-11-19 09:16 | CM ---
Pricing on Eliquis under the patient's [employer] ID # [id number], 10mg BID needs a prior authorization, [phone]. 5mg Bid is covered at $47 a month. I will place a free 30 day coupon in the patient's red discharge folder
--- NOTE | 2023-11-19 09:50 | W.PN.UPDATE ---
Update Note
Progress Note Update
Eliquis 10mg BID loading dose prior auth submitted [id number]
Eliquis 5mg BID covered by insurance plan
--- NOTE | 2023-11-19 11:22 | W.PN.HOSP.TC ---
Today's Communication/Plan
-
pending prior auth approval for outpatient Eliquis
Assessment / Plan
Assessment / Plan
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
May-Thurner syndrome, s/p thrombectomy and stent to L iliac vein by vasc Sx on 11/17/23, switched to oral Eliquis
Accidental finmding of primary hyperparathyroidism to be followed by PCP upon d/c
A/P:
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
Heparin drip and then DOAC
VAscSx follows: s/p thrombectomy and stent to common iliac vein on L and L external iliac vein on 11/17/23
#Mild hypercalcemia 2/2 Primary hyperparathyroidism
Follow with PCP for endo eval
CHest CT without signs of malignancy
#COPD not in exacerbation
#Anxiety d/o
#Essential HTN
#HLD
cont home meds
#Delayed renal contrast excretion
Urine/Albumin ratio WNL
Cr WNL
#DAMASO
cont CPAP at night
DVT ppx on hep drip
FUll code
I have spent at least 36min reviewing chart, test results, communication with consultants and direct patient care
Anticipated Discharge: Within 24 hours
Subjective/Interval History
-
Date of Service: November 19, 2023
Objective Data
-
Labs:
Laboratory Results
11/19/23
04:27
WBC 9.5
Hgb 11.0 L
Hct 33.3 L
Plt Count 170
Sodium 139
Potassium 4.4
Chloride 106
Carbon Dioxide 25
BUN 21 H
Creatinine 1.0
Glucose 110 H
Calcium 10.3 H
Total Bilirubin 0.5
AST 27
ALT 18
Alkaline Phosphatase 90
Vital Signs:
Vital Signs
Temp Pulse Resp BP Pulse Ox
98 F 71 20 110/54 96
11/19/23 11:01 11/19/23 09:00 11/19/23 11:01 11/19/23 07:18 11/19/23 11:01
I&O
11/18/23 11/19/23 11/20/23
06:59 06:59 06:59
Intake Total 240 / 240 240 / 240
Output Total 200 / 200 950 / 950
Balance 40 / 40 -710 / -710
--- NOTE | 2023-11-19 13:57 | CM ---
Chart reviewed. Patient is independent of ADLS, lives alone in a 1st level floor, 3 JUMANA, 0 DME. Plan is for the patient to return home. CM to follow
--- NOTE | 2023-11-19 16:03 | W.DCSUMMARY ---
Addendum entered and electronically signed by Haresh Nassar MD 11/19/23 16:57:
complex ADL in home, toileting, feeding and grooming, so in need of Rolling walker
Original Note:
Discharge Summary
Discharge Data
Date of Admission: 11/16/23
Date of Discharge: 11/19/23
-
Pending Results: No
Hospital Course
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
May-Thurner syndrome, s/p thrombectomy and stent to L iliac vein by [facility] Sx on 11/17/23, switched to oral Eliquis
Accidental finding of primary hyperparathyroidism to be followed by PCP upon d/c
Switched to oral Eliquis and CM confirmed acceptable cost for copayment as medication is in preferred list of insurance. Medically stable for D/C
I have spent at least 37min preparing d/c
Patient was managed for:
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
#Mild hypercalcemia 2/2 Primary hyperparathyroidism
#COPD not in exacerbation
#Anxiety d/o
#Essential HTN
#HLD
#Delayed renal contrast excretion
#DAMASO
#DJD
#Mild compression T12, asymptomatic
Discharge Plan
-
Patient Disposition: Home (Routine Discharge)
Discharge Diagnosis/Procedures: DVT
Diet: Regular
Activity: No restrictions
Driving Restrictions: As prior to admission
Bathing Restrictions: None
Referrals:
Mel Bush PA-C [Specified Professional Personl] - 11/25/23 10:30 am (Vascular follow up)
Ambika Smith PA-C [Family Provider] - (Follow for primary hyperthyroidism workup)
Additional Discharge Medication Instructions: Take Eliquis 10mg BID until 11/25/23, then start Eliquis 5mg BID on 11/26/23, dont stop or run out of pills!
Prescriptions:
New
aspirin 81 mg Tablet,Delayed Release (Dr/Ec)
81 mg PO DAILY Qty: 30 0RF
Eliquis DVT-PE Treat 30D Start 5 mg (74 tabs) tablets,dose pack
See Rx Instructions .ROUTE .COMPLEX Qty: 74 0RF
Rx Instructions:
orally take 10mg BID until 11/25/23 and then start 5mg BID on 11/26/23
Continued
metoprolol succinate 50 mg Tablet Extended Release 24 Hr
50 mg PO HS
simvastatin 40 mg Tablet
40 mg PO HS
calcium carbonate 500 mg calcium (1,250 mg) Tablet
500 mg PO DAILY
omeprazole 20 mg Capsule,Delayed Release(Dr/Ec)
20 mg PO DAILYPRN PRN (Reason: gerd)
sertraline 50 mg Tablet
150 mg PO HS
B Complex Plus Vitamin C 39-11-70-5-300 mg Capsule
1 cap PO DAILY
cholecalciferol (vitamin D3) [Vitamin D3] 25 mcg (1,000 unit) Tablet
25 mcg PO DAILY
lisinopril 20 mg tablet
20 mg PO HS
albuterol sulfate 90 mcg/actuation HFA aerosol inhaler
2 puff INHALATION R Q4HPRN PRN (Reason: sob/wheezing)
budesonide-formoterol [Symbicort] 80-4.5 mcg/actuation HFA aerosol inhaler
2 puff INHALATION R BID
azelastine 137 mcg (0.1 %) [place],Non-Aerosol
1 spray INTRANASAL BID
Discharge Orders:
Discharge Patient (As Directed); Ordered 11/19/23
Ordered By: Haresh Nassar
Care Plan Goals
Care Plan Goals:
Problem: Readiness for enhanced knowledge related to diagnosis and treatment plan
Goal: Understand your diagnosis and treatment plan needs, including medications if applicable.
Instructions: Know your diagnosis, underlying causes and treatment plan options, including medications if applicable. Consult with your health care team to learn about your diagnosis and treatment plan, including medications if applicable.
Discharge Date and Time
Print Language: DANISH
[2023-11-19 16:18] LABS: Folate 6.6 ng/ml (2.76-20); Vitamin B12 499 pg/ml (239-931)
--- NOTE | 2023-11-19 17:29 | PTCARENOTE ---
Pt seen by . Telemetry and IV devices removed. Pt has script for walker and will use cane as well. Discharge instructions reviewed with pt regarding medications and their possible side effects, kelley wraps, wound care, reporting cares and
concerns and follow up appt's. Very good understanding verbalized. Pt escorted out via wheelchair and discharged to home.
== END 2023-11-19 17:45 | disposition home or self-care (01) | DRG 271 ==
LOC: IVU 23:27
PROVIDERS: Nurse Practitioner; Physician Assistant Medical; ADMITTING PHYSICIAN Hospitalist; ATTENDING PHYSICIAN Internal Medicine; EMERGENCY PHYSICIAN Emergency Medicine; FAMILY PHYSICIAN Physician Assistant; OTHER PHYSICIAN Surgery Vascular Surgery
PROC: 047N3ZZ Dilation of Left Popliteal Artery, Percutaneous Approach (ICD-10-PCS; 2023-11-17)
PROC: 06CN3ZZ Extirpation of Matter from Left Femoral Vein, Percutaneous Approach (ICD-10-PCS; 2023-11-17)
PROC: 047D34Z Dilation of Left Common Iliac Artery with Drug-eluting Intraluminal Device, Percutaneous Approach (ICD-10-PCS; 2023-11-17)
PROC: 06CD3ZZ Extirpation of Matter from Left Common Iliac Vein, Percutaneous Approach (ICD-10-PCS; 2023-11-17)
PROC: 047L3ZZ Dilation of Left Femoral Artery, Percutaneous Approach (ICD-10-PCS; 2023-11-17)
PROC: 047J34Z Dilation of Left External Iliac Artery with Drug-eluting Intraluminal Device, Percutaneous Approach (ICD-10-PCS; 2023-11-17)
PROC: 06CG3ZZ Extirpation of Matter from Left External Iliac Vein, Percutaneous Approach (ICD-10-PCS; 2023-11-17)
PROC: 5A09357 Assistance with Respiratory Ventilation, Less than 24 Consecutive Hours, Continuous Positive Airway Pressure (ICD-10-PCS; 2023-11-17)
DX: I87.1 Compression of vein (principal); I82.412 Acute embolism and thrombosis of left femoral vein; I82.432 Acute embolism and thrombosis of left popliteal vein; I82.442 Acute embolism and thrombosis of left tibial vein; I82.422 Acute embolism and thrombosis of left iliac vein; I82.812 Embolism and thrombosis of superficial veins of left lower extremity; F32.A Depression, unspecified; I10 Essential (primary) hypertension; J45.30 Mild persistent asthma, uncomplicated; J44.89 Other specified chronic obstructive pulmonary disease; E21.0 Primary hyperparathyroidism; E78.00 Pure hypercholesterolemia, unspecified; F41.9 Anxiety disorder, unspecified; G47.33 Obstructive sleep apnea (adult) (pediatric); G62.9 Polyneuropathy, unspecified; K21.9 Gastro-esophageal reflux disease without esophagitis; M19.90 Unspecified osteoarthritis, unspecified site; E55.9 Vitamin D deficiency, unspecified; N32.81 Overactive bladder; Z79.51 Long term (current) use of inhaled steroids; Z79.899 Other long term (current) drug therapy; Z87.19 Personal history of other diseases of the digestive system
CPT/HCPCS: 36012; 37187; 37238; 37239; 37248; 71250; 74177; 75820; 76937; 80048; 80053; 82043; 82306; 82570; 82607; 82746; 83970; 84156; 85025; 85027; 85730; 93971; 94640; 94660; 96365; 96366; 97116; 97162; 97165; 97530; 99285; C1725; C1753; C1769; C1876; C1894; Q9967

== ENCOUNTER → 2023-12-24 09:49 | Outpatient (REF) | payer MEDICARE, SELFPAY | LOC: WDC 09:49 | PROVIDERS: ATTENDING PHYSICIAN Physician Assistant; FAMILY PHYSICIAN Internal Medicine; OTHER PHYSICIAN Physician Assistant | DX: Z12.31 Encounter for screening mammogram for malignant neoplasm of breast (principal); I87.1 Compression of vein | CPT/HCPCS: 77063; 77067; 93971; 93978 ==

== ENCOUNTER → 2024-04-20 10:08 | Outpatient (REF) | payer MEDICARE, SELFPAY | LOC: HWRAD 10:08 | PROVIDERS: ATTENDING PHYSICIAN Internal Medicine Rheumatology; FAMILY PHYSICIAN Internal Medicine | DX: M81.0 Age-related osteoporosis without current pathological fracture (principal); Z13.820 Encounter for screening for osteoporosis; M06.4 Inflammatory polyarthropathy; M17.0 Bilateral primary osteoarthritis of knee; M25.561 Pain in right knee; M25.562 Pain in left knee | CPT/HCPCS: 73130; 73560; 73565; 77080 ==

== ENCOUNTER → 2024-06-29 12:55 | Outpatient (REF) | payer MEDICARE, SELFPAY | LOC: RAD 12:55 | PROVIDERS: ATTENDING PHYSICIAN Surgery Vascular Surgery; FAMILY PHYSICIAN Internal Medicine | DX: I78.1 Nevus, non-neoplastic (principal); I82.422 Acute embolism and thrombosis of left iliac vein | CPT/HCPCS: 93971; 93978 ==

== ENCOUNTER → 2025-01-06 08:01 | Outpatient (REF) | payer MEDICARE, SELFPAY | LOC: RAD 08:01 | PROVIDERS: ATTENDING PHYSICIAN Physician Assistant; FAMILY PHYSICIAN Internal Medicine | DX: I87.1 Compression of vein (principal); I82.422 Acute embolism and thrombosis of left iliac vein | CPT/HCPCS: 93971; 93978 ==

== ENCOUNTER → 2025-01-10 06:42 | Outpatient (REF) | payer MEDICARE, SELFPAY | LOC: PAVMRI 06:42 | PROVIDERS: ATTENDING PHYSICIAN Internal Medicine Rheumatology; FAMILY PHYSICIAN Internal Medicine | DX: M17.0 Bilateral primary osteoarthritis of knee (principal); M17.9 Osteoarthritis of knee, unspecified; M25.562 Pain in left knee | CPT/HCPCS: 73721 ==

== ENCOUNTER → 2025-02-20 08:36 | Outpatient (REF) | payer MEDICARE, SELFPAY | LOC: RAD 08:36 | PROVIDERS: ATTENDING PHYSICIAN Internal Medicine Endocrinology, Diabetes & Metabolism; FAMILY PHYSICIAN Internal Medicine | DX: E21.3 Hyperparathyroidism, unspecified (principal) | CPT/HCPCS: 76536; 78071; A9500 ==